=== PATIENT | male | born 2000 | race Caucasian/White ===

== ENCOUNTER 2023-12-02 12:35 | Emergency (ER) | payer SELFPAY ==
[~2023-12-02] VITALS: Ht 175.3 cm; Wt 99.0 kg
[2023-12-02 13:08] VITALS: BP 142/85; PULSE 69; RESP 20; TEMP 97.7; O2SAT 99
[2023-12-02] MEDS: ACETAMINOPHEN EXTRA STRENGTH 500 MG TAB PO ONE (14:10)
[2023-12-02] MEDS: IBUPROFEN 600 MG TAB PO ONE (14:11)
[2023-12-02] MEDS ORDERED: ACET500T99 PO (14:27)
[2023-12-02] MEDS ORDERED: IBUP-2213 PO (14:27)
[2023-12-02 14:32] VITALS: BP 142/85; PULSE 69; RESP 20; TEMP 97.7; O2SAT 99
== END 2023-12-02 14:32 | disposition home or self-care (01) ==
LOC: MED 12:35
DX: R51.9 Headache, unspecified (principal); H57.89 Other specified disorders of eye and adnexa; Z79.1 Long term (current) use of non-steroidal anti-inflammatories (NSAID)
CPT/HCPCS: 99283